=== PATIENT | female | born 1985 | race Caucasian/White ===

== ENCOUNTER 2016-12-01 01:51 | Inpatient (IN) | payer BC ==
[2016-12-01] MEDS ORDERED: Lidocaine 1% 50 ML MDV INJECT ONE (02:43)
[2016-12-01] MEDS ORDERED: Ondansetron 4 MG/2 ML SDV IVPUSH PRN (02:43)
[2016-12-01] MEDS ORDERED: Nalbuphine 20 MG/1 ML Amp IVPUSH PRN (02:43)
[2016-12-01] MEDS ORDERED: Sodium Chloride 0.9% 10 ML Syringe FLUSH PRN (02:43)
[2016-12-01] MEDS ORDERED: Lactated Ringers 1,000 ML IV SCH (02:45)
[2016-12-01] MEDS ORDERED: Oxytocin/Lactated Ringers 10 UNIT/1,000 ML BAG IV SCH (02:45)
--- NOTE | 2016-12-01 04:10 | PCM.LDHP ---
L&D History of Present Illness - General Date of Service: 12/01/16 Admit Problem/Dx: Patient Status Order with Admit Dx/Problem 12/01/16 02:43 Patient Status [ADT] Routine Patient Status: Refer to Observation Admission Diagnosis/Problem: Normal labor Reason for Admit: Active Labor Nurse Unit Type: Labor and Delivery Admitting Physician: Albertina Toussaint Attending Physician: Albertina Toussaint Medicare 96 Hour Certification Statement: This Patient is Admitted for Inpatient Services and is Medically Appropriate and Meets Medical Necessity for Inpatient Admission. I Reasonably Expect the Patient Will Require Inpatient Services That Span a Period of Time Over 2 Midnights. My Rationale for Medically Necessary Inpatient Care Will Be Found in the Admission History & Physical and Progress Notes. I Reasonably Expect the Patient to be Discharged or Transferred Within 96 Hours After Admission to This [facility]. Admission Diagnosis/Problem Admission Diagnosis/Problem Normal labor Source of Information: Patient History Limitations: Reports: No limitations - History of Present Illness Introduction:: Patient is a 31 y/o at 38 4/7 wks who presents in labor. No SROM yet. Otherwise doing well. - Related Data Allergies/Adverse Reactions: Allergies Allergy/AdvReac Type Severity Reaction Status Date / Time hydrocodone Allergy Vomiting Verified 12/01/16 02:47 Past Medical History - Past Health History Medical/Surgical History: Denies Medical/Surgical History - Past Surgical History HEENT Surgical History: Reports: Other (see below) (Tooth extraction) Social & Family History - Tobacco Use Smoking Status *Q: Never Smoker - Alcohol Use Alcohol Use History: No - Recreational Drug Use Recreational Drug Use: No H&P Review of Systems - Review of Systems: Review Of Systems: See Below General: Reports: no symptoms Pulmonary: Reports: No Symptoms Cardiovascular: Reports: no symptoms Gastrointestinal: Reports: No symptoms Genitourinary: Reports: no symptoms Musculoskeletal: Reports: no symptoms Psychiatric: Reports: no symptoms L&D Exam - Exam Exam: See Below - Vital Signs Weight: 78.109 kg - OB Specific Contraction Intensity: Moderate to Strong movement: active heart tones: present heart tones per min: 135 Heart Rate (FHR) Variability: Moderate (6-25 bmp) Presentation: Vertex - Givens Score Givens Score Cervix Position: Midposition Givens Score Consistency: Soft Givens Score Effacement: >80% Givens Score Dilation: > 5 cm Givens Score 's Station: +1, +2 Givens Score Total: 12 - Exam General: alert, oriented, cooperative Lungs: Clear to auscultation, Normal respiratory effort Cardiovascular: regular rate, regular rhythm Abdomen: soft Genitourinary: Normal external exam Extremities: normal inspection Skin: warm, dry, intact - Patient Data Lab Results last 24 hrs: Laboratory Results - last 24 hr 12/01/16 12/01/16 Range/Units 02:30 02:30 WBC 9.99 (3.98-10.04) K/mm3 RBC 4.36 (3.98-5.22) M/mm3 Hgb 13.3 (11.2-15.7) gm/L Hct 38.3 (34.1-44.9) % MCV 87.8 (79.4-94.8) fl MCH 30.5 (25.6-32.2) pg MCHC 34.7 (32.2-35.5) g/dl RDW Std Deviation 42.0 (36.4-46.3) fL Plt Count 231 (182-369) K/mm3 MPV 11.0 (9.4-12.3) fl Blood Type O NEGATIVE Result Diagrams: 12/01/16 02:30 - Problem List (1) 38 weeks gestation of SNOMED Code(s): 99361883 ICD Code: Z3A.38 - 38 WEEKS GESTATION OF Status: Acute Current Visit: Yes (2) Normal labor SNOMED Code(s): 41981761 ICD Code: O80 - ENCOUNTER FOR FULL-TERM UNCOMPLICATED DELIVERY; Z37.9 - OUTCOME OF DELIVERY, UNSPECIFIED Status: Acute Current Visit: Yes (3) Rubella non-immune status, antepartum SNOMED Code(s): 635086984 ICD Code: O99.89 - OTH DISEASES AND CONDITIONS COMPL PREG/CHLDBRTH; Z28.3 - UNDERIMMUNIZATION STATUS Status: Acute Current Visit: Yes (4) Rh negative state in antepartum period SNOMED Code(s): 170490358, 834175367 ICD Code: O09.899 - SUPERVISION OF OTHER HIGH RISK PREGNANCIES, UNSP TRIMESTER Status: Acute Current Visit: Yes Qualifiers: Trimester: third trimester Qualified Code(s): O09.893 - Supervision of other high risk pregnancies, third trimester Problem List Initiated/Reviewed/Updated: Yes Orders Last 24hrs: Active Orders 24 hr Category Date Time Status Patient Status [ADT] Routine ADT 12/01/16 02:43 Active Activity as Tolerated [RC] PFP Care 12/01/16 02:43 Active Communication Order [RC] ASDIRECTED Care 12/01/16 02:43 Active Heart Tones [RC] ASDIRECTED Care 12/01/16 02:43 Active Notify Provider [RC] PFP Care 12/01/16 02:43 Active Notify Provider [RC] PRN Care 12/01/16 02:43 Active Peripheral IV Care [RC] . DIRECTED Care 12/01/16 02:43 Active Vital Signs [RC] PER UNIT ROUTINE Care 12/01/16 02:43 Active PATIENT RETYPE [BBK] Stat Lab 12/01/16 02:30 Results TYPE AND SCREEN [BBK] Stat Lab 12/01/16 02:30 Results Lactated Ringers [Ringers, Lactated] 1,000 ml Med 12/01/16 02:45 Active IV ASDIRECTED Nalbuphine [Nubain] Med 12/01/16 02:43 Active 10 mg IVPUSH Q2H PRN Ondansetron [Zofran] Med 12/01/16 02:43 Active 4 mg IVPUSH Q4H PRN Oxytocin/Lactated Ringers [Pitocin in LR 10 Units/1,000 Med 12/01/16 02:45 Active ML] 10 unit in 1,000 ml IV TITRATE Sodium Chloride 0.9% [Saline Flush] Med 12/01/16 02:43 Active 10 ml FLUSH ASDIRECTED PRN Electronic Heart Tones Ext w TOCO [WOMSER] Oth 12/01/16 02:43 Ordered Routine Electronic Heart Tones Internal [WOMSER] Per Unit Oth 12/01/16 02:43 Ordered Routine Peripheral IV Insertion Adult [OM.PC] Routine Oth 12/01/16 02:43 Ordered Resuscitation Status Routine Resus Stat 12/01/16 02:43 Ordered Medication Orders Lactated Ringer's (Ringers, Lactated) 1,000 mls @ 100 mls/hr IV ASDIRECTED MICHAEL Last Admin: 12/01/16 03:15 Dose: 250 mls/hr Oxytocin/Lactated Ringer's (Pitocin In Lr 10 Units/1,000 Ml) 10 unit in 1,000 mls @ 500 mls/hr IV TITRATE MICHAEL Nalbuphine HCl (Nubain) 10 mg IVPUSH Q2H PRN PRN Reason: Pain (moderate 4-6) Ondansetron HCl (Zofran) 4 mg IVPUSH Q4H PRN PRN Reason: Nausea/Vomiting Sodium Chloride (Saline Flush) 10 ml FLUSH ASDIRECTED PRN PRN Reason: Keep Vein Open Assessment/Plan Comment:: 31 y/o at 38 4/7 wks in labor * CBC and T&S * Pain management per patient preference * GBS negative, no need for antibiotics * MMR after delivery * Rh neg, assess blood type following delivery
--- NOTE | 2016-12-01 05:10 | PCM.DEL ---
L & D Note - General Info Date of Service: 12/01/16 - Delivery Note Labor: spontaneous Delivery Outcome: Livebirth Delivery Method: Spontaneous Vaginal Delivery Delivery Mode: Spontaneous Presentation: Right Occiput Anterior (MALLORY) Nuchal cord: present, reduced Anesthesia Type: None Amniotic Fluid Description: Clear Episiotomy Type: None Laceration: periurethral (Small, hemostatic and so not repaired) Placenta: intact, spontaneous Cord: 3 vessels Estimated blood loss: 250 Resuscitation needed: Yes Bishop: bulb syringe, stimulated, warmed, blanket used Score 1 min: 7 Score 5 min: 9 Delivery Comments (Free Text/Narrative):: Patient found to be complete and began pushing. With maternal pushing effort head delivered from an MALLORY presentation. Nuchal cord present and reduced. Gentle downward traction placed on the baby and shoulders and body quickly delivered. Infant placed on maternal abdomen. Cord clamped and cut. Cord blood obtained. Placenta allowed time to separate and then expelled. Inspection of the perineum showed bilateral periurethral tears which were hemostatic and so not sutured. - Patient Data Weight - most recent: 78.109 kg Lab Results last 24 hrs: Laboratory Results - last 24 hr 12/01/16 12/01/16 Range/Units 02:30 02:30 WBC 9.99 (3.98-10.04) K/mm3 RBC 4.36 (3.98-5.22) M/mm3 Hgb 13.3 (11.2-15.7) gm/L Hct 38.3 (34.1-44.9) % MCV 87.8 (79.4-94.8) fl MCH 30.5 (25.6-32.2) pg MCHC 34.7 (32.2-35.5) g/dl RDW Std Deviation 42.0 (36.4-46.3) fL Plt Count 231 (182-369) K/mm3 MPV 11.0 (9.4-12.3) fl Blood Type O NEGATIVE Gel Antibody Screen Positive Med Orders - Current: Current Medications Lactated Ringer's (Ringers, Lactated) 1,000 mls @ 100 mls/hr IV ASDIRECTED MICHAEL Last Admin: 12/01/16 03:15 Dose: 250 mls/hr Oxytocin/Lactated Ringer's (Pitocin In Lr 10 Units/1,000 Ml) 10 unit in 1,000 mls @ 500 mls/hr IV TITRATE MICHAEL Nalbuphine HCl (Nubain) 10 mg IVPUSH Q2H PRN PRN Reason: Pain (moderate 4-6) Ondansetron HCl (Zofran) 4 mg IVPUSH Q4H PRN PRN Reason: Nausea/Vomiting Sodium Chloride (Saline Flush) 10 ml FLUSH ASDIRECTED PRN PRN Reason: Keep Vein Open Discontinued Medications Lidocaine HCl (Xylocaine 1%) 20 ml INJECT ONETIME ONE Stop: 12/01/16 02:44 - Problem List & Annotations (1) 38 weeks gestation of SNOMED Code(s): 92735884 Code(s): Z3A.38 - 38 WEEKS GESTATION OF Status: Acute Current Visit: Yes (2) Normal labor SNOMED Code(s): 21376402 Code(s): O80 - ENCOUNTER FOR FULL-TERM UNCOMPLICATED DELIVERY; Z37.9 - OUTCOME OF DELIVERY, UNSPECIFIED Status: Acute Current Visit: Yes (3) Rubella non-immune status, antepartum SNOMED Code(s): 411900788 Code(s): O99.89 - OTH DISEASES AND CONDITIONS COMPL PREG/CHLDBRTH; Z28.3 - UNDERIMMUNIZATION STATUS Status: Acute Current Visit: Yes (4) Rh negative state in antepartum period SNOMED Code(s): 274684944, 114694789 Code(s): O09.899 - SUPERVISION OF OTHER HIGH RISK PREGNANCIES, UNSP TRIMESTER Status: Acute Current Visit: Yes Qualifiers: Trimester: third trimester Qualified Code(s): O09.893 - Supervision of other high risk pregnancies, third trimester (5) Vaginal delivery SNOMED Code(s): 208282276 Code(s): O80 - ENCOUNTER FOR FULL-TERM UNCOMPLICATED DELIVERY Status: Acute Current Visit: Yes - Problem List Review Problem List Initiated/Reviewed/Updated: Yes - My Orders Last 24 Hours: My Active Orders 12/01/16 02:30 ANTIBODY IDENTIFICATION [BBK] Stat PATIENT RETYPE [BBK] Stat TYPE AND SCREEN [BBK] Stat 12/01/16 02:43 Patient Status [ADT] Routine Activity as Tolerated [RC] PFP Communication Order [RC] ASDIRECTED Heart Tones [RC] ASDIRECTED Notify Provider [RC] PFP Notify Provider [RC] PRN Peripheral IV Care [RC] . DIRECTED Vital Signs [RC] PER UNIT ROUTINE Nalbuphine [Nubain] 10 mg IVPUSH Q2H PRN Ondansetron [Zofran] 4 mg IVPUSH Q4H PRN Sodium Chloride 0.9% [Saline Flush] 10 ml FLUSH ASDIRECTED PRN Electronic Heart Tones Ext w TOCO [WOMSER] Routine Electronic Heart Tones Internal [WOMSER] Per Unit Routine Peripheral IV Insertion Adult [OM.PC] Routine Resuscitation Status Routine 12/01/16 02:45 Lactated Ringers [Ringers, Lactated] 1,000 ml IV ASDIRECTED Oxytocin/Lactated Ringers [Pitocin in LR 10 Units/1,000 ML] 10 unit in 1,000 ml IV TITRATE 12/01/16 05:08 Patient Status Manage Transfer [TRANSFER] Routine - Assessment Assessment:: 31 y/o G2 now P2002 PPD#0 from at 38 4/7 wks - Plan Plan:: * Routine cares * Encourage breast feeding * Discharge home in 1-2 days * MMR after delivery * Rh neg, assess blood type following delivery
[2016-12-01] MEDS ORDERED: Benzocaine/Menthol 20%-0.5% Spray 56 GM Canister TOP PRN (05:22)
[2016-12-01] MEDS ORDERED: Docusate Sodium 100 MG Cap PO PRN (05:22)
[2016-12-01] MEDS ORDERED: Witch Hazel Medicated Pads 100/Jar TOP PRN (05:22)
[2016-12-01] MEDS ORDERED: Acetaminophen 325 MG Tab PO PRN (05:22)
[2016-12-01] MEDS ORDERED: Lanolin 100% Cream 7 GM Tube TOP PRN (05:22)
[2016-12-01] MEDS: Ibuprofen 600 MG Tab PO PRN ×4 (05:40→21:03)
[2016-12-02] MEDS: Ibuprofen 600 MG Tab PO PRN (03:18)
[2016-12-02 05:47] VITALS: BP 112/70
--- NOTE | 2016-12-02 07:08 | PCM.DCSUM1 ---
Discharge Summary - Discharge Data Discharge Date: 12/02/16 Discharge Disposition: Home, Self-Care 01 Condition: Good - Discharge Diagnosis/Problem(s) (1) 38 weeks gestation of SNOMED Code(s): 93285448 ICD Code: Z3A.38 - 38 WEEKS GESTATION OF Status: Acute (2) Normal labor SNOMED Code(s): 93221879 ICD Code: O80 - ENCOUNTER FOR FULL-TERM UNCOMPLICATED DELIVERY; Z37.9 - OUTCOME OF DELIVERY, UNSPECIFIED Status: Acute (3) Rubella non-immune status, antepartum SNOMED Code(s): 372420449 ICD Code: O99.89 - OTH DISEASES AND CONDITIONS COMPL PREG/CHLDBRTH; Z28.3 - UNDERIMMUNIZATION STATUS Status: Acute (4) Rh negative state in antepartum period SNOMED Code(s): 561024629, 418105268 ICD Code: O09.899 - SUPERVISION OF OTHER HIGH RISK PREGNANCIES, UNSP TRIMESTER Status: Acute Qualifiers: Trimester: third trimester Qualified Code(s): O09.893 - Supervision of other high risk pregnancies, third trimester (5) Vaginal delivery SNOMED Code(s): 540784374 ICD Code: O80 - ENCOUNTER FOR FULL-TERM UNCOMPLICATED DELIVERY Status: Acute - Patient Summary/Data Complications: None Consults: None Recommended Follow-up Testing/Procedures: Follow up with Dr. Toussaint in 5-6 weeks for check Hospital Course: 31 y/o admitted at 38 4/7 wks in labor. She progressed well without the need for augmentation and underwent an uncomplicated . See delivery note. she did well and was discharged home on PPD#1. - Patient Instructions Diet: Regular Diet as Tolerated Activity: As Tolerated Activity, Other: Pelvic Rest for 6 weeks Driving: May Drive Today Showering/Bathing: May Shower Showering/Bathing, Other: May Bathe Notify Provider of: Fever, Increased Pain, Drainage, Nausea and/or Vomiting - Discharge Plan Home Medications: Home Meds Ibuprofen [IJD: Ibuprofen] 600 mg PO Q4H PRN #0 tablet 12/01/16 [Rx] Inulin/Chromium Picolinate [Fiber Gummies] 4 - 6 each PO DAILY 12/01/16 [History ] Pnv No.122/Iron/Folic Acid [ Multi Tablet] 1 each PO DAILY 12/01/16 [ History] Patient Handouts: , Home Care Instructions for Mom Referrals: Albertina Toussaint MD [Primary Care Provider] - (5-6 weeks for check) - Discharge Summary/Plan Comment DC Time >30 min.: No - Patient Data Vitals - Most Recent: Last Vital Signs Temp 36.1 C 12/02/16 04:00 Pulse 76 12/02/16 05:36 Resp 15 12/02/16 04:00 BP 112/70 12/02/16 05:36 Pulse Ox 100 12/02/16 05:36 Weight - Most Recent: 78.109 kg I&O - Last 24 hours: Intake & Output 12/01/16 12/02/16 12/02/16 22:59 06:59 14:59 Intake Total 360 Balance 360 Lab Results - Last 24 hrs: Laboratory Results - last 24 hr 12/01/16 12/01/16 Range/Units 02:30 07:54 Blood Type O NEGATIVE O NEGATIVE Gel Antibody Screen Positive Positive Screen 0 ros/5 flds - neg RhIG Candidate? Yes Rhogam Indicated Yes, baby rh pos H Med Orders - Current: Current Medications Acetaminophen (Tylenol) 650 mg PO Q4H PRN PRN Reason: mild pain or fever Benzocaine/Menthol (Dermoplast Pain Relief [place]) 0 gm TOP ASDIRECTED PRN PRN Reason: Perineal Comfort Measure Last Admin: 12/01/16 05:40 Dose: 1 can Docusate Sodium (Colace) 100 mg PO BID PRN PRN Reason: Constipation Emollient Ointment (Lansinoh Hpa) 0 gm TOP ASDIRECTED PRN PRN Reason: Sore Nipples Ibuprofen (Motrin) 600 mg PO Q4H PRN PRN Reason: Mild pain or fever Last Admin: 12/02/16 03:18 Dose: 600 mg Witch Justina (Tucks) 1 pad TOP ASDIRECTED PRN PRN Reason: Hemorrhoid pain Last Admin: 12/01/16 05:39 Dose: 1 container Discontinued Medications Lactated Ringer's (Ringers, Lactated) 1,000 mls @ 100 mls/hr IV ASDIRECTED MICHAEL Last Admin: 12/01/16 03:15 Dose: 250 mls/hr Oxytocin/Lactated Ringer's (Pitocin In Lr 10 Units/1,000 Ml) 10 unit in 1,000 mls @ 500 mls/hr IV TITRATE MICHAEL Last Admin: 12/01/16 04:55 Dose: 500 mls/hr Lidocaine HCl (Xylocaine 1%) 20 ml INJECT ONETIME ONE Stop: 12/01/16 02:44 Last Admin: 12/01/16 07:40 Dose: Not Given Nalbuphine HCl (Nubain) 10 mg IVPUSH Q2H PRN PRN Reason: Pain (moderate 4-6) Ondansetron HCl (Zofran) 4 mg IVPUSH Q4H PRN PRN Reason: Nausea/Vomiting Sodium Chloride (Saline Flush) 10 ml FLUSH ASDIRECTED PRN PRN Reason: Keep Vein Open *Q Meaningful Use (DIS) - VTE *Q VTE Criteria *Q: - Stroke *Q Stroke Criteria *Q: - AMI *Q AMI Criteria *Q:
--- NOTE | 2016-12-02 07:08 | PCM.PNPP ---
- General Info Date of Service: 12/02/16 Functional Status: Reports: pain controlled, tolerating diet, ambulating, urinating - Review of Systems General: Reports: No Symptoms Pulmonary: Reports: no symptoms Cardiovascular: Reports: No Symptoms Gastrointestinal: Reports: No symptoms Genitourinary: Reports: no symptoms Musculoskeletal: Reports: no symptoms - Patient Data Vital Signs - most recent: Last Vital Signs Temp 36.1 C 12/02/16 04:00 Pulse 76 12/02/16 05:36 Resp 15 12/02/16 04:00 BP 112/70 12/02/16 05:36 Pulse Ox 100 12/02/16 05:36 Weight - most recent: 78.109 kg I&O - last 24 hours: Intake & Output 12/01/16 12/02/16 12/02/16 22:59 06:59 14:59 Intake Total 360 Balance 360 Lab Results - last 24 hrs: Laboratory Results - last 24 hr 12/01/16 12/01/16 Range/Units 02:30 07:54 Blood Type O NEGATIVE O NEGATIVE Gel Antibody Screen Positive Positive Screen 0 ros/5 flds - neg RhIG Candidate? Yes Rhogam Indicated Yes, baby rh pos H Med Orders - Current: Current Medications Acetaminophen (Tylenol) 650 mg PO Q4H PRN PRN Reason: mild pain or fever Benzocaine/Menthol (Dermoplast Pain Relief [place]) 0 gm TOP ASDIRECTED PRN PRN Reason: Perineal Comfort Measure Last Admin: 12/01/16 05:40 Dose: 1 can Docusate Sodium (Colace) 100 mg PO BID PRN PRN Reason: Constipation Emollient Ointment (Lansinoh Hpa) 0 gm TOP ASDIRECTED PRN PRN Reason: Sore Nipples Ibuprofen (Motrin) 600 mg PO Q4H PRN PRN Reason: Mild pain or fever Last Admin: 12/02/16 03:18 Dose: 600 mg Witch Justina (Tucks) 1 pad TOP ASDIRECTED PRN PRN Reason: Hemorrhoid pain Last Admin: 12/01/16 05:39 Dose: 1 container Discontinued Medications Lactated Ringer's (Ringers, Lactated) 1,000 mls @ 100 mls/hr IV ASDIRECTED MICHAEL Last Admin: 12/01/16 03:15 Dose: 250 mls/hr Oxytocin/Lactated Ringer's (Pitocin In Lr 10 Units/1,000 Ml) 10 unit in 1,000 mls @ 500 mls/hr IV TITRATE MICHAEL Last Admin: 12/01/16 04:55 Dose: 500 mls/hr Lidocaine HCl (Xylocaine 1%) 20 ml INJECT ONETIME ONE Stop: 12/01/16 02:44 Last Admin: 12/01/16 07:40 Dose: Not Given Nalbuphine HCl (Nubain) 10 mg IVPUSH Q2H PRN PRN Reason: Pain (moderate 4-6) Ondansetron HCl (Zofran) 4 mg IVPUSH Q4H PRN PRN Reason: Nausea/Vomiting Sodium Chloride (Saline Flush) 10 ml FLUSH ASDIRECTED PRN PRN Reason: Keep Vein Open - Interaction Disposition, : [place] in Room with Family Infant Interaction: Holding Feeding: Attempted ; Nursed Fair/Poor Support Person: - Recovery Exam Fundal Tone: Firm Fundal Level: 1 Fingerbreadths Below Umbilicus Fundal Placement: Midline Lochia Amount: Small Lochia Color: Rubra/Red Perineum Description: Intact, Minimal Bruising/Swelling Episiotomy/Laceration: None Bladder Status: Voiding Urinary Elimination: Voided - Exam General: alert, oriented, cooperative Abdomen: soft, no tenderness Extremities: no edema Skin: warm, dry, intact - Problem List & Annotations (1) 38 weeks gestation of SNOMED Code(s): 24660587 Code(s): Z3A.38 - 38 WEEKS GESTATION OF Status: Acute (2) Normal labor SNOMED Code(s): 23463061 Code(s): O80 - ENCOUNTER FOR FULL-TERM UNCOMPLICATED DELIVERY; Z37.9 - OUTCOME OF DELIVERY, UNSPECIFIED Status: Acute (3) Rubella non-immune status, antepartum SNOMED Code(s): 540022714 Code(s): O99.89 - OTH DISEASES AND CONDITIONS COMPL PREG/CHLDBRTH; Z28.3 - UNDERIMMUNIZATION STATUS Status: Acute (4) Rh negative state in antepartum period SNOMED Code(s): 119933795, 029223064 Code(s): O09.899 - SUPERVISION OF OTHER HIGH RISK PREGNANCIES, UNSP TRIMESTER Status: Acute Qualifiers: Trimester: third trimester Qualified Code(s): O09.893 - Supervision of other high risk pregnancies, third trimester (5) Vaginal delivery SNOMED Code(s): 091032215 Code(s): O80 - ENCOUNTER FOR FULL-TERM UNCOMPLICATED DELIVERY Status: Acute - Problem List Review Problem List Initiated/Reviewed/Updated: Yes - My Orders Last 24 Hours: My Active Orders 12/01/16 Breakfast Regular Diet [DIET] 12/02/16 05:22 Heat Therapy [OM.PC] PRN 12/02/16 07:07 Ready for Discharge [RC] PER UNIT ROUTINE - Assessment Assessment:: 31 y/o G2 now P2002 PPD#1 from at 38 4/7 wks - Plan Plan:: * Routine cares * Encourage breast feeding * Discharge home today * MMR prior to discharge * Rh neg and baby blood type Rh positive, has received Rhogam
== END 2016-12-02 11:15 | disposition home or self-care (01) | DRG 560 ==
LOC: JD.OBCHECK 01:51 → JD.OB 01:52 → JD.OBCHECK 02:43 → JD.OB 04:54 → OBSVTOIN 04:54
PROVIDERS: ADMIT Obstetrics & Gynecology; ATTEND Obstetrics & Gynecology
PROC: 10E0XZZ Delivery of Products of Conception, External Approach (ICD-10-PCS; principal; 2016-12-01)
DX: O71.82 Other specified trauma to perineum and vulva (principal); O69.81X0 Labor and delivery complicated by cord around neck, without compression, not applicable or unspecified; Z3A.39 39 weeks gestation of pregnancy; Z37.0 Single live birth; Z88.6 Allergy status to analgesic agent
CPT/HCPCS: 36415; 85027; 85461; 86850; 86870; 86900; 86901; A9270-GY; J2590; J2790; J7120

== ENCOUNTER 2022-12-12 09:05 | Day surgery (SDC) | payer BC, OTHER ==
[~2022-12-12 09:05] MED LIST: Lactated Ringers 1,000 ML IV SCH; Lidocaine 1%/Sod Bicarbonate in NS 8.4% 1 ML Syringe IDERM PRN; Sodium Chloride 0.9% 10 ML Syringe FLUSH PRN; Sodium Chloride 0.9% 10 ML Syringe FLUSH SCH
[2022-12-12] MEDS ORDERED: Midazolam 1 MG/ML 2 ML SDV ONE (09:50)
[2022-12-12] MEDS ORDERED: fentaNYL 100 MCG/2 ML SDV ONE (09:50)
[2022-12-12] MEDS ORDERED: Propofol 200 MG/20 ML SDV ONE (09:50)
[2022-12-12] MEDS ORDERED: Bupivacaine 0.25%/EPINEPHrine 1:200,000 30 ML SDV ONE (09:53)
[2022-12-12] MEDS ORDERED: Lidocaine 1% 5 ML VIAL ONE (09:53)
[2022-12-12] MEDS ORDERED: ceFAZolin 2 GM Vial ONE (10:54)
[2022-12-12] MEDS ORDERED: Dexamethasone 4 MG/ML 5 ML MDV ONE (11:11)
[2022-12-12] MEDS ORDERED: Lactated Ringers 1,000 ML ONE ×2 (11:45)
[2022-12-12] MEDS ORDERED: HYDROmorphone 0.5 MG/0.5 ML Syringe IVPUSH PRN (11:49)
[2022-12-12] MEDS ORDERED: fentaNYL 100 MCG/2 ML SDV IVPUSH PRN (11:49)
[2022-12-12] MEDS ORDERED: Ketorolac 30 MG/ML SDV ONE (11:55)
[2022-12-12] MEDS ORDERED: Ondansetron 4 MG/2 ML SDV ONE (11:55)
[2022-12-12] MEDS ORDERED: HYDROmorphone 0.5 MG/0.5 ML Syringe ONE (11:57)
[2022-12-12] MEDS ORDERED: Acetaminophen/oxyCODONE 325-5 MG Tab PO PRN (12:14)
[2022-12-12] MEDS ORDERED: Ondansetron 4 MG/2 ML SDV IVPUSH PRN (12:14)
[2022-12-12] MEDS: Ondansetron 4 MG/2 ML SDV IVPUSH PRN ×2 (13:00→13:40)
[2022-12-12 17:17] VITALS: BP 118/70; PULSE 88
[2022-12-12] MEDS ORDERED: Ketorolac 30 MG/ML SDV IVPUSH SCH (18:00)
[2022-12-12] MEDS ORDERED: Ibuprofen 600 MG Tab PO PRN (23:59)
== END 2022-12-12 17:05 | disposition home or self-care (01) ==
LOC: JD.SDS 09:05
PROVIDERS: ATTEND Obstetrics & Gynecology
DX: D25.9 Leiomyoma of uterus, unspecified (principal); N72 Inflammatory disease of cervix uteri; N80.00 Endometriosis of the uterus, unspecified; N83.202 Unspecified ovarian cyst, left side; N81.4 Uterovaginal prolapse, unspecified; F41.9 Anxiety disorder, unspecified; J45.909 Unspecified asthma, uncomplicated; Z79.899 Other long term (current) drug therapy; Z88.5 Allergy status to narcotic agent; Z98.890 Other specified postprocedural states; N83.201 Unspecified ovarian cyst, right side
CPT/HCPCS: 36415; 58263; 81003; 81025; 82565; 82947; 85025; 86850; 86900; 86901; A9270; J0690; J1100; J1170; J1885; J2250; J2405; J2704; J3010; J7120; 00944; J3490

== ENCOUNTER 2022-12-12 19:35 | Observation (INO) | payer OTHER ==
[2022-12-12] MEDS ORDERED: HYDROmorphone 0.5 MG/0.5 ML Syringe IVPUSH ONE (20:13)
[2022-12-12] MEDS ORDERED: Ondansetron 4 MG/2 ML SDV IVPUSH ONE (20:13)
[2022-12-12] MEDS ORDERED: Sodium Chloride 0.9% 1,000 ML IV ONE (20:13)
[2022-12-12] MEDS ORDERED: Lactated Ringers 1,000 ML IV ONE (22:00)
[2022-12-12] MEDS ORDERED: Acetaminophen/oxyCODONE 325-5 MG Tab PO PRN (22:00)
[2022-12-12] MEDS: Ondansetron 4 MG Tab.DIS PO SCH (22:13)
[2022-12-12] MEDS: Ibuprofen 600 MG Tab PO PRN (23:01)
[2022-12-13] MEDS: Ondansetron 4 MG Tab.DIS PO SCH ×4 (03:18→13:43)
[2022-12-13] MEDS: Ibuprofen 600 MG Tab PO PRN (05:55)
[2022-12-13] MEDS ORDERED: Docusate Sodium 100 MG Cap PO SCH (06:00)
[2022-12-13] MEDS ORDERED: Acetaminophen 325 MG Tab PO PRN (09:21)
[2022-12-13 12:11] VITALS: BP 114/57; PULSE 100
[2022-12-13] MEDS: Ibuprofen 600 MG Tab PO SCH ×2 (12:49→13:44)
== END 2022-12-13 14:30 | disposition home or self-care (01) ==
LOC: JD.ED 19:35 → JD.OB 22:08
PROVIDERS: ADMIT Obstetrics & Gynecology; ATTEND Obstetrics & Gynecology
DX: N94.6 Dysmenorrhea, unspecified (principal); N92.1 Excessive and frequent menstruation with irregular cycle; N81.4 Uterovaginal prolapse, unspecified; N81.6 Rectocele; F41.9 Anxiety disorder, unspecified; J45.909 Unspecified asthma, uncomplicated; Z79.899 Other long term (current) drug therapy; Z88.5 Allergy status to narcotic agent; Z98.890 Other specified postprocedural states; Z90.710 Acquired absence of both cervix and uterus
CPT/HCPCS: 36415; 80053; 81001; 85025; A9270; G0378; J1170; J2405; J7030; J7120; 96361; 96374; 96375; 99284-25